=== PATIENT | male | born 1955 | race Caucasian/White ===

== ENCOUNTER 2016-12-20 03:13 | Emergency (ER) | payer MEDICARE ==
[~2016-12-20] VITALS: Ht 188 cm; Wt 136.1 kg
[2016-12-20] MEDS ORDERED: METF-620 PO (03:48)
[2016-12-20] MEDS ORDERED: GLIP10TA13 PO (03:49)
[2016-12-20] MEDS ORDERED: ALLO300T PO (03:50)
[2016-12-20] MEDS ORDERED: ATEN100T PO (03:51)
[2016-12-20] MEDS ORDERED: LOSA100T6 PO (03:51)
[2016-12-20] MEDS ORDERED: FLUT100D IH (03:52)
[2016-12-20] MEDS ORDERED: PIOG1TAB24 PO (03:52)
[2016-12-20] MEDS ORDERED: DULO60CA6 PO (03:53)
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
[2016-12-20] MEDS ORDERED: HYDROcodone/APAP 5/325MG 1 TAB TABLET PO ONE (04:15)
[2016-12-20] MEDS ORDERED: IBUPROFEN 400 MG TABLET. PO ONE (04:15)
[2016-12-20 04:40] VITALS: BP 165/89
--- NOTE | 2016-12-20 09:29 | RAD ---
Right FOOT AP LATERAL OBLIQUE Clinical Indication: twisting injury; pain to lateral foot Comparison: None. Findings: There is no acute fracture or dislocation. The bony alignment is normal. Mineralization is normal. No bony erosion. There is no soft tissue abnormality. Small plantar calcaneal enthesophyte. IMPRESSION: No acute fracture.
== END 2016-12-20 04:50 | disposition home or self-care (01) ==
LOC: ER 03:13
DX: M79.671 Pain in right foot (principal); Y08.89XA Assault by other specified means, initial encounter; Y93.89 Activity, other specified; Y92.89 Other specified places as the place of occurrence of the external cause; Y99.8 Other external cause status
CPT/HCPCS: 73630; 99284

== ENCOUNTER → 2019-07-04 | Outpatient (CLI) | payer OTHER ==
[~2019-07-04] MED LIST: ALLO300T PO; ATEN100T PO; DULO60CA6 PO; FLUT100D IH; GLIP10TA13 PO; LOSA100T14 PO; METF10007 PO; PIOG1TAB24 PO
--- NOTE | 2019-07-04 11:56 | RAD ---
EXAM: Lower extremity arterial Doppler sonogram with ankle-brachial indices (VICTOR MANUEL). HISTORY: Claudication. Hypertension. Diabetes. TECHNIQUE: Doppler sonographic evaluation of the lower extremities was performed and pressure readings were assessed. FINDINGS: Right brachial pressure: 125 mmHg Left brachial pressure: 121 mmHg Right ankle pressure: 137 mmHg Right VICTOR MANUEL: 1.10 Left ankle pressure: 127 mmHg Left VICTOR MANUEL: 1.02 There are normal peak systolic velocities throughout the bilateral lower extremity arteries, with exception of an elevated peak systolic velocity within the left common femoral artery. There are triphasic waveforms throughout the bilateral lower extremity arteries from the common femoral arteries to the popliteal arteries and within the right posterior tibial and peroneal arteries. There are biphasic waveforms within the left posterior tibial and peroneal arteries and bilateral anterior tibial arteries and dorsalis pedis arteries. No occlusion is seen. IMPRESSION: 1. Normal bilateral ankle-brachial indices. 2. Mildly elevated peak systolic velocity within the left common femoral artery, suggesting mild stenosis. No occlusion or severe stenosis is seen involving the lower extremity arteries. Electronically signed by: Bhavya Tristan MD (07/04/2019 11:52 AM) [place] [id number]
== END | disposition home or self-care (01) ==
LOC: US 11:03
PROVIDERS: ATTEND Internal Medicine
DX: I73.9 Peripheral vascular disease, unspecified (principal); R25.2 Cramp and spasm
CPT/HCPCS: 93922; 93925

== ENCOUNTER 2020-01-26 20:07 | Emergency (ER) | payer OTHER ==
[~2020-01-26] VITALS: Ht 167.6 cm; Wt 104.0 kg
[2020-01-26 20:57] VITALS: BP 167/90
--- NOTE | 2020-01-26 21:40 | RAD ---
Exam: Right toe 3 views INDICATION: Second toe is dislocated TECHNIQUE: Frontal view of the right foot with oblique and lateral views the second digit Comparisons: None FINDINGS: Mildly displaced volar plate fracture at the base of the middle phalanx second digit. Mild surrounding soft tissue swelling. Bone mineralization is normal. Joint spaces are well-maintained. IMPRESSION: Mildly displaced volar plate fracture at the base of the middle phalanx second digit. Electronically signed by: Lien Velázquez MD (01/26/2020 9:37 PM) [id number]
--- NOTE | 2020-01-26 21:51 | PHYS DOC ---
Past Medical History Past Medical History: Depression, Hypertension Additional Past Medical Histor: SLEEP APNEA,GOUT,HEEL SPURS,NEUROPATHY (TAMMY CHRISTENSEN APRN) Past Surgical History: No Surgical History (TAMMY CHRISTENSEN APRN) Smoking Status: Never Smoker Alcohol Use: None Drug Use: None (TAMMY CHRISTENSEN APRN) Attending Signature I have participated in the care of this patient and I have reviewed and agree with all pertinent clinical information above including history, exam, and recommendations. (RAGHAVENDRA FORTE MD) General Adult EDM: Chief Complaint: TOE PROBLEM HPI: HPI: Patient is a 65 year old male who presents to the emergency department with complaints of right second toe dislocation. Patient states earlier this evening he was making his bed when he stubbed his toe. Patient states he went to urgent care and they did x-rays and told him that he needed to go to the ER because his toe was dislocated. Patient reports history of diabetes with neuropathy, he reports decreased sensation in his toes but reports that it is mild and he can still feel for the most part. He currently rates his pain a 2 out of 10 on the pain scale and describes it as throbbing. He denies any radiation of the pain, the pain is better with rest, it is aggravated by movement and palpation. (TAMMY CHRISTENSEN APRN) Review of Systems: Review of Systems: Constitutional: Denies fever or chills. [] Musculoskeletal: See HPI Integument: Reports bruising to the right second toe Neurologic: Denies focal weakness or sensory changes. [] Psychiatric: Denies depression or anxiety. [] (TAMMY CHRISTENSEN APRN) Heart Score: Risk Factors: Risk Factors: DM, Current or recent (<one month) smoker, HTN, HLP, family history of CAD, obesity. Risk Scores: Score 0 - 3: 2.5% MACE over next 6 weeks - Discharge Home Score 4 - 6: 20.3% MACE over next 6 weeks - Admit for Clinical Observation Score 7 - 10: 72.7% MACE over next 6 weeks - Early Invasive Strategies (TAMMY CHRISTENSEN APRN) Allergies: Allergies: Allergies Coded Allergies Type Severity Reaction Last Updated Verified No Known Drug Allergies 12/20/16 No (TAMMY CHRISTENSEN APRN) Physical Exam: PE: Constitutional: Well developed, well nourished, no acute distress, non-toxic appearance. [] HENT: Normocephalic, atraumatic, bilateral external ears normal, nose normal. [] Eyes: PERRLA, conjunctiva normal, no discharge. [] Neck: Normal range of motion, no stridor. [] Cardiovascular:Heart rate regular rhythm Lungs & Thorax: Respirations even and unlabored, no retractions, no respiratory distress Skin: Warm, dry, no erythema, no rash, bruising noted to right second toe. [] Extremities: Right second toe: Mild deformity noted with limited range of motion, right pedal pulse 2+, cap refill less than 3 seconds, 1+ edema to right second toe Neurologic: Alert and oriented X 3, no focal deficits noted. [] Psychologic: Affect normal, judgement normal, mood normal. [] (TAMMY CHRISTENSEN APRN) Current Patient Data: Vital Signs: Vital Signs Date Time Temp Pulse Resp B/P (MAP) Pulse Ox O2 Delivery O2 Flow Rate FiO2 01/26/20 20:57 98.5 89 18 167/90 (115) 97 Room Air 98.5 (TAMMY CHRISTENSEN APRN) EKG: EKG: [] (TAMMY CHRISTENSEN APRN) Radiology/Procedures: Radiology/Procedures: 2119- I was able to pull on the right second toe and reduce the dislocation. Patient reported full range of motion and decreased discomfort after dislocation was reduced by myself. The right second toe was then inna taped to the right great toe using 2 cotton balls placed between the toes and taped by myself (TAMMY CHRISTENSEN APRN) Course & Med Decision Making: Course & Med Decision Making Pertinent Labs and Imaging studies reviewed. (See chart for details) [] (TAMMY CHRISTENSEN APRN) Brad Disclaimer: Dragdaniel Disclaimer: This electronic medical record was generated, in whole or in part, using a voice recognition dictation system. (TAMMY CHRISTENSEN APRN) Departure Departure Impression: Primary Impression: Dislocation of second toe, right, closed Qualified Codes: S93.104A - Unspecified dislocation of right toe(s), initial encounter Additional Impression: Fracture of toe of right foot Qualified Codes: S92.521A - Displaced fracture of middle phalanx of right lesser toe(s), initial encounter for closed fracture Disposition: 01 HOME, SELF-CARE Condition: STABLE Referrals: TOM MOSES MD (PCP) Patient Instructions: Inna Taping of Toes, Toe Dislocation, [id number], Toe Fracture Additional Instructions: Inna tape the toes as done in the emergency department. You can take Tylenol or ibuprofen as needed for pain. Follow-up with your primary care doctor for further evaluation and treatment, return to the ER if symptoms worsen. Justicifation of Admission Dx: Justifications for Admission: Justification of Admission Dx: N/A (TAMMY CHRISTENSEN TELLER) TAMMY CHRISTENSEN APRN Jan 26, 2020 21:51 RAGHAVENDRA FORTE MD Jan 27, 2020 03:32
== END 2020-01-26 21:57 | disposition home or self-care (01) ==
LOC: ER 20:07
DX: S92.521A Displaced fracture of middle phalanx of right lesser toe(s), initial encounter for closed fracture (principal); I10 Essential (primary) hypertension; M10.9 Gout, unspecified; E11.40 Type 2 diabetes mellitus with diabetic neuropathy, unspecified; W22.8XXA Striking against or struck by other objects, initial encounter; Y93.89 Activity, other specified; Y92.89 Other specified places as the place of occurrence of the external cause; Y99.8 Other external cause status
CPT/HCPCS: 28515; 73660; 99283; 99284

== ENCOUNTER → 2021-03-27 | Outpatient (CLI) | payer OTHER ==
[~2021-03-27] MED LIST changes: -DULO60CA6 PO; +DULO60CA7 PO; -FLUT100D IH; +FLUT100D2 IH
--- NOTE | 2021-03-28 13:54 | RAD ---
Bone scan 03/27/2021 CLINICAL HISTORY: Prostate cancer. TECHNIQUE: 3 hours after the intravenous administration of 25 mCi of Technetium 99m MDP, whole body i maging of the axial and appendicular skeleton was performed using the gamma camera. FINDINGS: No relevant prior studies are available for comparison. Areas of increased activity are seen involving the cervical spine, the mid and lower thoracic spine w ithin the mid and lower lumbar spine along with both wrists, both knees, both shoulders, both knees a nd both feet and ankles consistent with areas of degenerative change. No area of abnormally increased or decreased activity is seen to suggest evidence of metastatic disease. IMPRESSION: There is no scintigraphic evidence of skeletal metastatic disease. Electronically signed by: Seamus López MD (03/28/2021 1:52 PM) [id number]
== END ==
LOC: NM 09:16
PROVIDERS: ATTEND Urology
DX: C61 Malignant neoplasm of prostate (principal)
CPT/HCPCS: 78306; A9503